=== PATIENT | male | born 1955 | race Caucasian/White ===

== ENCOUNTER 2018-06-04 10:16 | Emergency (ER) | payer MEDICARE, BC ==
[2018-06-04] MEDS ORDERED: ASPIRIN 81 MG CHEWABLE CTB PO ONE (10:22)
[2018-06-04] MEDS ORDERED: ASPIRIN 81 MG CHEWABLE CTB ONE (10:23)
[2018-06-04] MEDS ORDERED: NITROGLYCERIN 0.4 MG TAB SL PRN (10:27)
[2018-06-04] MEDS ORDERED: SODIUM CHLORIDE 0.9% FLUSH 10 ML SOL IV PRN (10:27)
[2018-06-04 10:29] VITALS: RESP 20
[2018-06-04 10:33] LABS: BASOPHILS % (AUTO) 1 % (0-3); EOSINOPHILS % (AUTO) 3 % (0-9); HEMATOCRIT 46 % (39-53); LYMPHOCYTES % (AUTO) 29.9 % (10-50); MEAN CORPUSCULAR HGB CONC 32.5 gm/dl (32.0-36.0); MONOCYTES % (AUTO) 6.7 % (0-12); NEUTROPHILS % (AUTO) 58.7 % (37-80)
[2018-06-04 10:43] LABS: MEAN CORPUSCULAR VOLUME 80 fL (80-100)
[2018-06-04 10:52] LABS: CALCIUM 9.1 mg/dl (8.5-10.1); CARBON DIOXIDE 29.4 mEq/L (21-32); CREATININE 1.09 mg/dl (0.80-1.30); POTASSIUM 4.3 mMol/L (3.5-5.1)
[2018-06-04 10:58] LABS: TROP I 0.033 ng/ml (0.000-0.056)
[2018-06-04 14:02] VITALS: TEMP 98.4
[2018-06-04] MEDS ORDERED: ALUMINUM/MAGNESIUM 30 ML SUS PO ONE (15:34)
[2018-06-04] MEDS ORDERED: LIDOCAINE HCL 2% (VISCOUS) 20 ML SOL MT ONE (15:34)
[2018-06-04] MEDS ORDERED: LIDOCAINE HCL 2% (VISCOUS) 20 ML SOL ONE (16:02)
[2018-06-04] MEDS ORDERED: ALUMINUM/MAGNESIUM 30 ML SUS ONE (16:02)
[2018-06-04 16:49] VITALS: BP 149/81; O2SAT 94
[2018-06-04 16:50] VITALS: PULSE 74
== END 2018-06-04 17:15 | disposition home or self-care (01) | DRG 392 ==
LOC: ED 10:16
DX: K21.9 Gastro-esophageal reflux disease without esophagitis (principal)
CPT/HCPCS: 36415; 71045; 80048; 82550; 84484; 85025; 93005; 99283; 99285; A9270-GY